=== PATIENT | female | born 1985 | race African-American/Black ===

== ENCOUNTER 2017-01-26 04:30 | Inpatient (IN) | payer OTHER ==
[~2017-01-26] VITALS: Ht 152.7 cm; Wt 102.1 kg
[~2017-01-26 04:30] MED LIST: ACET-704 PO; ATOR10TA60 PO; METH-37 PO; PROP20TA PO; WARF1TAB74 PO
--- NOTE | 2017-01-26 05:11 | RAD ---
CT scan of the head without contrast 01/26/2017 Clinical History: Altered mental status. Technique: Unenhanced, contiguous, 5 mm axial sections were obtained through the head. One or more of the following individualized dose reduction techniques were utilized for this study: 1. Automated exposure control. 2. Adjustment of the mA and/or kV according to patient size. 3. Use of iterative reconstruction technique. Findings: Comparison study is dated 06/02/2016. The ventricles and sulci are within normal limits in size and configuration. No acute parenchymal abnormality is seen. No extra-axial fluid collection is seen. No skull fracture is seen. Impression: No acute intracranial abnormality is seen. This result was called to Dr. Mayes in the emergency department. Electronically signed by: Randall Hernandes MD (01/26/2017 5:08 AM) [facility] [place]
[2017-01-26 05:14] LABS: BASO # 0.1 x10^3/uL (0.0-0.2); BASO % 1 % (0-3); EOS % 2 % (0-3); HEMATOCRIT 43.4 % (36.0-47.0); HEMOGLOBIN 15.1 g/dL (12.0-15.5); LYMPH # 2.5 x10^3/uL (1.0-4.8); LYMPH % 37 % (24-48); MEAN CORPUSCULAR HEMOGLOBIN 31 pg (25-35); MEAN CORPUSCULAR HGB CONC 35 g/dL (31-37); MEAN CORPUSCULAR VOLUME 89 fL (79-100); MONO % 7 % (0-9); NEUT % 53 % (31-73); PLATELET COUNT 204 x10^3/uL (140-400); RED BLOOD COUNT 4.91 x10^6/uL (3.50-5.40); RED CELL DISTRIBUTION WIDTH 13.3 % (11.5-14.5); WHITE BLOOD COUNT 6.6 x10^3/uL (4.0-11.0)
[2017-01-26 05:24] LABS: PROTHROMBIN TIME PATIENT 12.8 SEC (11.7-14.0)
[2017-01-26] MEDS: ASPIRIN 325 MG TABLET PO ONE ×2 (05:30→10:33)
[2017-01-26 05:32] LABS: CALCIUM 9.4 mg/dL (8.5-10.1); GFR 79.3; POTASSIUM 3.1 mmol/L (3.5-5.1)
[2017-01-26 05:37] LABS: ALBUMIN/GLOBULIN RATIO 1.1 (1.0-1.7); TOTAL BILIRUBIN 0.5 mg/dL (0.2-1.0); TOTAL PROTEIN 7.6 g/dL (6.4-8.2)
[2017-01-26 06:02] LABS: BARBITURATES NEG (NEG); BENZODIAZEPINES NEG (NEG); CANNABINOIDS NEG (NEG); COCAINE POS (NEG); METHADONE NEG (NEG); OPIATES NEG (NEG); PHENCYCLIDINE POS (NEG)
[2017-01-26 06:03] LABS: NEG OBC UR NEG; POS OBC UR POS
--- NOTE | 2017-01-26 06:16 | PHYS DOC ---
Past Medical History Past Medical History: Hypertension, Stroke Past Surgical History: , Other Additional Past Surgical Histo: "STENT IN NECK" Alcohol Use: Occasionally Drug Use: Marijuana Adult General Chief Complaint Chief Complaint: ALTERED MENTAL STATUS HPI HPI Patient is a 31 year old female who presents with altered mental status. Initially providing very little history due to clinical condition. Dropped off by friends, not acting normally. She has history of previous CVA. Review of Systems Review of Systems unable to obtain due to clinical condition. Current Medications Current Medications Current Medications Medications (Trade) Dose Ordered Sig/[place] Start Time Stop Time Status Last Admin Dose Admin Aspirin (Jaret Aspirin) 325 mg 1X ONCE 01/26/17 05:30 01/26/17 05:31 DC Allergies Allergies Allergies Coded Allergies Type Severity Reaction Last Updated Verified No Known Drug Allergies 03/25/14 No Physical Exam Physical Exam Constitutional: obese, no acute distress, non-toxic appearance. HENT: Normocephalic, atraumatic, bilateral external ears normal, oropharynx moist, nose normal. Eyes: PERRLA 4 mm bilaterally, EOMI, conjunctiva normal, no discharge. Neck: supple, no stridor. Cardiovascular: RRR, no murmurs, no edema. Lungs & Thorax: LCTAB, no wheezing, no respiratory distress. Abdomen: soft, nontender, nondistended. Skin: Warm, dry, no erythema, no rash. Back: No tenderness. Extremities: No tenderness, no edema. Neurologic: Alert and oriented to person only, slurred speech, slow responses to questions & commands, difficulty following some commands, CN2-12 grossly intact, symmetric strength/sensation to UE & LE though weak bilaterally, intact finger to nose & heel to rowley, no palmar drift Psychologic: confused, flat affect Current Patient Data Vital Signs Vital Signs Date Time Temp Pulse Resp B/P (MAP) Pulse Ox O2 Delivery O2 Flow Rate FiO2 01/26/17 05:30 74 183/91 (121) 98 Room Air 01/26/17 04:43 99.1 16 99.1 Lab Values Laboratory Tests Test 01/26/17 04:38 01/26/17 04:43 01/26/17 05:00 01/26/17 05:33 Glucose (Fingerstick) 132 mg/dL (70-99) H POC Urine HCG, Qualitative Hcg negative (Negative) White Blood Count 6.6 x10^3/uL (4.0-11.0) Red Blood Count 4.91 x10^6/uL (3.50-5.40) Hemoglobin 15.1 g/dL (12.0-15.5) Hematocrit 43.4 % (36.0-47.0) Mean Corpuscular Volume 89 fL (79-100) Mean Corpuscular Hemoglobin 31 pg (25-35) Mean Corpuscular Hemoglobin Concent 35 g/dL (31-37) Red Cell Distribution Width 13.3 % (11.5-14.5) Platelet Count 204 x10^3/uL (140-400) Neutrophils (%) (Auto) 53 % (31-73) Lymphocytes (%) (Auto) 37 % (24-48) Monocytes (%) (Auto) 7 % (0-9) Eosinophils (%) (Auto) 2 % (0-3) Basophils (%) (Auto) 1 % (0-3) Neutrophils # (Auto) 3.5 x10^3uL (1.8-7.7) Lymphocytes # (Auto) 2.5 x10^3/uL (1.0-4.8) Monocytes # (Auto) 0.4 x10^3/uL (0.0-1.1) Eosinophils # (Auto) 0.1 x10^3/uL (0.0-0.7) Basophils # (Auto) 0.1 x10^3/uL (0.0-0.2) Prothrombin Time 12.8 SEC (11.7-14.0) Prothrombin Time INR 1.0 (0.8-1.1) PTT 28 SEC (24-38) Sodium Level 143 mmol/L (136-145) Potassium Level 3.1 mmol/L (3.5-5.1) L Chloride Level 106 mmol/L (98-107) Carbon Dioxide Level 29 mmol/L (21-32) Anion Gap 8 (6-14) Blood Urea Nitrogen 9 mg/dL (7-20) Creatinine 1.0 mg/dL (0.6-1.0) Estimated GFR (Cockcroft-Gault) 79.3 BUN/Creatinine Ratio 9 (6-20) Glucose Level 132 mg/dL (70-99) H Calcium Level 9.4 mg/dL (8.5-10.1) Total Bilirubin 0.5 mg/dL (0.2-1.0) Aspartate Amino Transferase (AST) 17 U/L (15-37) Alanine Aminotransferase (ALT) 26 U/L (14-59) Alkaline Phosphatase 70 U/L (46-116) Troponin I Quantitative < 0.017 ng/mL (0.000-0.055) BB-Bxl-M-Type Natriuretic Peptide 43 pg/mL (0-124) Total Protein 7.6 g/dL (6.4-8.2) Albumin 4.0 g/dL (3.4-5.0) Albumin/Globulin Ratio 1.1 (1.0-1.7) Ethyl Alcohol Level < 10 mg/dL (0-10) Urine Test Negative (NEG) Urine Opiates Screen Neg (NEG) Urine Methadone Screen Neg (NEG) Urine Barbiturates Neg (NEG) Urine Phencyclidine Screen Pos (NEG) Urine Amphetamine/Methamphetamine Neg (NEG) Urine Benzodiazepines Screen Neg (NEG) Urine Cocaine Screen Pos (NEG) Urine Cannabinoids Screen Neg (NEG) Urine Ethyl Alcohol Neg (NEG) Laboratory Tests 01/26/17 05:00 Laboratory Tests 01/26/17 05:00 EKG EKG Interpreted by me: Normal sinus rhythm rate 91, no acute ST or T wave changes, normal intervals, no ectopy. [] Radiology/Procedures Radiology/Procedures PROCEDURE: CT HEAD WO CONTRAST CT scan of the head without contrast 01/26/2017 Clinical History: Altered mental status. Technique: Unenhanced, contiguous, 5 mm axial sections were obtained through the head. One or more of the following individualized dose reduction techniques were utilized for this study: 1. Automated exposure control. 2. Adjustment of the mA and/or kV according to patient size. 3. Use of iterative reconstruction technique. Findings: Comparison study is dated 06/02/2016. The ventricles and sulci are within normal limits in size and configuration. No acute parenchymal abnormality is seen. No extra-axial fluid collection is seen. No skull fracture is seen. Impression: No acute intracranial abnormality is seen. This result was called to Dr. Mayes in the emergency department. Electronically signed by: Randall Hernandes MD (01/26/2017 5:08 AM) [facility] DICTATED and SIGNED BY: RANDALL HERNANDES MD DATE: 01/26/17 0501 CXR: interpreted by me: no cardiomegaly, no infiltrate, no pneumothorax.[] Course & Med Decision Making Course & Med Decision Making Pertinent Labs and Imaging studies reviewed. (See chart for details) The patient presents with altered mental status. Initially treated as code stroke due to her history. CT negative for hemorrhage or other acute finding. Gave aspirin. obtained labs & EKG. She had hypokalemia. She tested positive for PCP & cocaine. She told the RN that she had smoked marijuana & was worried that it was contaminated. She was overall much improved & without focal neurologic deficits, but still slow responses & confusion regarding her situation. She did not feel well enough to go home, unable to describe symptoms of previous stroke or whether this is similar. Given unknown time of symptom onset, last normal, likely tox etiology, & absence of focal symptoms, not a candidate for TPA. Discussed with Dr. Dumont who agrees to admit to inpatient status, neurology consult to Dr. Sánchez. The patient is admitted in stable & improved condition. [] Dragon Disclaimer Dragon Disclaimer This electronic medical record was generated, in whole or in part, using a voice recognition dictation system. Departure Departure Impression: Primary Impression: Altered mental status Additional Impression: Polysubstance abuse Disposition: ADMITTED INPATIENT Admitting Physician: Isai Dumont Condition: STABLE Referrals: LUIS MANUEL GARLAND (PCP) Problem Qualifiers AZRA MAYES MD Jan 26, 2017 06:16
[2017-01-26] MEDS ORDERED: ONDANSETRON PF 4 MG/2 ML VIAL. IV PRN ×2 (06:30→10:30)
[2017-01-26] MEDS ORDERED: ACETAMINOPHEN 325 MG TABLET. PO PRN ×2 (06:30→10:30)
--- NOTE | 2017-01-26 06:38 | ACF ---
Admission Forms Criteria MENTAL STATUS CHANGE Clinical Indications for Inpatient Care (Place 'X' for any and all applicable criteria): Ongoing inpatient care may be needed for 1 or more of the following(1)(2)(3)(5)( 6): [X]I. Suspected serious etiology (eg, medical disorder, FIRE SUPPRESSION CAPTAIN event) of altered mental status [ ]II. Danger to self or others not manageable at lower level of care [ ]III. Grave disability (eg, inability to perform self care necessary at lower level of care) [ ]IV. Agitation or inappropriate behavior interfering with care for primary condition (eg, attempting to discontinue lines or drains prematurely, unable to cooperate with respiratory care) [ ]V. Delirium [A] [D][E] as described by 1 or more of the following(26): [ ]a) Delirium due to alcohol or sedative [F] withdrawal [ ]b) Delirium of uncertain etiology that has not responded to appropriate empiric treatment [ ]c) Delirium that prevents performance of a life-sustaining function (eg, feeding or hydrating oneself) [X]. General contraindications and/or Inappropriate clinical situations for Observational Care in patients with Mental Status Change, when ANY ONE of the following is required: [ ]a) Prediction of prolongation of LOS based on ANY ONE of the following may be considered as a contraindication for observational care 2, 3, 4, 5, 6, 7, 8, 9, 10, 11 [ ]i) Age > 65 yrs. [ ]ii) Patient arriving by ambulance [ ]iii) Patient with high acuity [ ]iv) Patient requiring vital sign monitoring [ ]v) Patient on IV medication [X]b) Systolic blood pressures greater than or equal to 180mmHg 3, 12 [ ]c) Patient with altered mental status including delirium and other alteration of consciousness, (3) [ ]d) Patient whose discharge disposition will be to a group home home or rehabilitation home should not be managed in Emergency Department Observation Unit. CMS rule requires 3 days hospital stay before such placement.3,13 [ ]e) Patient with failure to thrive due to broad array of etiologies 3,16,17 [ ]f) Inability to ambulate 3,14 Extended stay beyond goal length of stay for the primary condition may be needed until ALL of the following are present(3)(5): [ ]a) Underlying medical etiology of mental status change is absent, or has been established and adequately treated [ ]b) Danger to self or others is absent or manageable at lower level of care. [ ]c) Behavior crisis management, including physical or chemical restraints, is not required or available at lower level of car [ ]d) Substance or alcohol withdrawal is absent or manageable at lower level of care. [ ]e) Behavioral symptoms (eg, agitation, somnolence, inappropriate behavior) are absent, or are manageable at lower level of care. The original [facility] content created by [facility] has been revised. The portions of the content which have been revised are identified through the use of italic text or in bold, and [facility] has neither reviewed nor approved the modified material. All other unmodified content is copyright [facility] [employer]. Please see references footnoted in the original [facility] edition 2016 Admission Criteria Met?: Yes MOSES LUCIANO Jan 26, 2017 06:38
--- NOTE | 2017-01-26 06:51 | EKG ---
[facility] [address] [place] [address] Test Date: 2017-01-26 Test Time: 05:08:13 Pat Name: SHANELLE JOHNSON Department: Room: Gender: F Certified Technician Specialist: : [id number] Requested By: AZRA TELLES Order Number: [id number] Reading MD: Measurements Intervals [place] Rate: 91 P: -17 [place]: 132 QRS: 16 QRSD: 88 T: 106 QT: 350 QTc: 432 Interpretive Statements SINUS RHYTHM INCOMPLETE RIGHT BUNDLE BRANCH BLOCK ST & T ABNORMALITY, CONSIDER HIGH LATERAL ISCHEMIA OR LEFT VENTRICULAR STRAIN ABNORMAL ECG RI6.01 No previous ECG available for comparison
[2017-01-26] MEDS ORDERED: POTASSIUM CHLORIDE 20 MEQ/15 ML ORAL LIQUID. PO ONE (07:00)
--- NOTE | 2017-01-26 07:15 | RAD ---
Portable chest, 01/26/2017: History: Altered mental status Comparison is made to a study from 07/19/2012. The heart size and pulmonary vascularity are normal. No pulmonary infiltrates are seen. There is no evidence of pleural fluid. IMPRESSION: No acute cardiopulmonary abnormality is detected.
[2017-01-26 07:59] VITALS: BP 145/95
[2017-01-26 08:22] VITALS: BP 145/95
--- NOTE | 2017-01-26 09:52 | PDOC1 ---
History and Physical Identification/Chief Complaint Chief Complaint ams Problems: History of Present Illness History of Present Illness A 31 Female with hx of CVA, Bought to the hospital for AMS, Pt remembers that she was in bar yesterday, after that she cannot recall full events. She denies any doing of drugs, urine positive for Cocaine and PCP. ct Head negative, Pt is alert, oriented. c/o neck pain where they put stents in the past, 12/31, per pt she had recent CT scan which was negative for any new findings. Denies any headaches, or fever or chills. Past Medical History Past Medical History CVA Cardiovascular: HTN Past Surgical History Past Surgical History STENTS PLACEMENT Social History Smoke: No ALCOHOL: occassional Drugs: Cocaine, Marijuana Current Problem List Problem List Problems Medical Problems: (1) Altered mental status Status: Acute (2) Polysubstance abuse Status: Acute Current Medications Current Medications Current Medications Medications (Trade) Dose Ordered Sig/[place] Start Time Stop Time Status Last Admin Dose Admin Acetaminophen (Tylenol) 650 mg PRN Q4HRS PRN 01/26/17 06:30 01/27/17 06:29 Aspirin (Jaret Aspirin) 325 mg 1X ONCE 01/26/17 05:30 01/26/17 05:31 DC Ondansetron HCl (Zofran) 4 mg PRN Q8HRS PRN 01/26/17 06:30 01/27/17 06:29 Potassium Chloride (KCl Oral Soln) 40 meq 1X ONCE 01/26/17 07:00 01/26/17 07:01 DC Allergies Allergies Allergies Coded Allergies Type Severity Reaction Last Updated Verified No Known Drug Allergies 03/25/14 No ROS Review of System CONSTITUTIONAL: No fever or chills EYES: No recent changes SKIN: No rash or itching CARDIOVASCULAR: No chest pain, syncope, palpitations, or edema RESPIRATORY: No SOB or cough GASTROINTESTINAL: No nausea, vomiting or abdominal pain NEUROLOGICAL: No headaches or weakness ENDOCRINE: No cold or heat intolerance GENITOURINARY: No urgency or frequency of urination MUSCULOSKELETAL: No back pain or joint pain LYMPHATICS: No enlarged lymph nodes PSYCHIATRIC: No anxiety or depression Physical Exam Physical Exam GEN.: No apparent distress. Alert and oriented TIMES 3 HEENT: Head is normocephalic, atraumatic NECK: Supple. LUNGS: Clear to auscultation. HEART: RRR, S1, S2 present. Peripheral pulses intact ABDOMEN: Soft, nontender. Positive bowel sounds. EXTREMITIES: Without any cyanosis. NEUROLOGIC: Normal speech, normal tone, rule 4/5, LUE 4/5 PSYCHIATRIC: Normal affect, normal mood. SKIN: No Visible ulcerations Vitals Vitals Vital Signs Date Time Temp Pulse Resp B/P (MAP) Pulse Ox O2 Delivery O2 Flow Rate FiO2 01/26/17 08:22 98.2 73 15 145/95 (112) 99 Room Air 98.2 Labs Labs Laboratory Tests Test 01/26/17 04:38 01/26/17 04:43 01/26/17 05:00 01/26/17 05:33 Glucose (Fingerstick) 132 mg/dL (70-99) Bedside Urine HCG, Qualitative Hcg negative (Negative) White Blood Count 6.6 x10^3/uL (4.0-11.0) Red Blood Count 4.91 x10^6/uL (3.50-5.40) Hemoglobin 15.1 g/dL (12.0-15.5) Hematocrit 43.4 % (36.0-47.0) Mean Corpuscular Volume 89 fL (79-100) Mean Corpuscular Hemoglobin 31 pg (25-35) Mean Corpuscular Hemoglobin Concent 35 g/dL (31-37) Red Cell Distribution Width 13.3 % (11.5-14.5) Platelet Count 204 x10^3/uL (140-400) Neutrophils (%) (Auto) 53 % (31-73) Lymphocytes (%) (Auto) 37 % (24-48) Monocytes (%) (Auto) 7 % (0-9) Eosinophils (%) (Auto) 2 % (0-3) Basophils (%) (Auto) 1 % (0-3) Neutrophils # (Auto) 3.5 x10^3uL (1.8-7.7) Lymphocytes # (Auto) 2.5 x10^3/uL (1.0-4.8) Monocytes # (Auto) 0.4 x10^3/uL (0.0-1.1) Eosinophils # (Auto) 0.1 x10^3/uL (0.0-0.7) Basophils # (Auto) 0.1 x10^3/uL (0.0-0.2) Prothrombin Time 12.8 SEC (11.7-14.0) Prothromb Time International Ratio 1.0 (0.8-1.1) Activated Partial Thromboplast Time 28 SEC (24-38) Sodium Level 143 mmol/L (136-145) Potassium Level 3.1 mmol/L (3.5-5.1) Chloride Level 106 mmol/L (98-107) Carbon Dioxide Level 29 mmol/L (21-32) Anion Gap 8 (6-14) Blood Urea Nitrogen 9 mg/dL (7-20) Creatinine 1.0 mg/dL (0.6-1.0) Estimated GFR (Cockcroft-Gault) 79.3 BUN/Creatinine Ratio 9 (6-20) Glucose Level 132 mg/dL (70-99) Calcium Level 9.4 mg/dL (8.5-10.1) Total Bilirubin 0.5 mg/dL (0.2-1.0) Aspartate Amino Transf (AST/SGOT) 17 U/L (15-37) Alanine Aminotransferase (ALT/SGPT) 26 U/L (14-59) Alkaline Phosphatase 70 U/L (46-116) Troponin I Quantitative < 0.017 ng/mL (0.000-0.055) XI-Lxl-K-Type Natriuretic Peptide 43 pg/mL (0-124) Total Protein 7.6 g/dL (6.4-8.2) Albumin 4.0 g/dL (3.4-5.0) Albumin/Globulin Ratio 1.1 (1.0-1.7) Ethyl Alcohol Level < 10 mg/dL (0-10) Urine Test Negative (NEG) Urine Opiates Screen Neg (NEG) Urine Methadone Screen Neg (NEG) Urine Barbiturates Neg (NEG) Urine Phencyclidine Screen Pos (NEG) Urine Amphetamine/Methamphetamine Neg (NEG) Urine Benzodiazepines Screen Neg (NEG) Urine Cocaine Screen Pos (NEG) Urine Cannabinoids Screen Neg (NEG) Urine Ethyl Alcohol Neg (NEG) Laboratory Tests Test 01/26/17 04:38 01/26/17 04:43 01/26/17 05:00 01/26/17 05:33 Glucose (Fingerstick) 132 mg/dL (70-99) Bedside Urine HCG, Qualitative Hcg negative (Negative) White Blood Count 6.6 x10^3/uL (4.0-11.0) Red Blood Count 4.91 x10^6/uL (3.50-5.40) Hemoglobin 15.1 g/dL (12.0-15.5) Hematocrit 43.4 % (36.0-47.0) Mean Corpuscular Volume 89 fL (79-100) Mean Corpuscular Hemoglobin 31 pg (25-35) Mean Corpuscular Hemoglobin Concent 35 g/dL (31-37) Red Cell Distribution Width 13.3 % (11.5-14.5) Platelet Count 204 x10^3/uL (140-400) Neutrophils (%) (Auto) 53 % (31-73) Lymphocytes (%) (Auto) 37 % (24-48) Monocytes (%) (Auto) 7 % (0-9) Eosinophils (%) (Auto) 2 % (0-3) Basophils (%) (Auto) 1 % (0-3) Neutrophils # (Auto) 3.5 x10^3uL (1.8-7.7) Lymphocytes # (Auto) 2.5 x10^3/uL (1.0-4.8) Monocytes # (Auto) 0.4 x10^3/uL (0.0-1.1) Eosinophils # (Auto) 0.1 x10^3/uL (0.0-0.7) Basophils # (Auto) 0.1 x10^3/uL (0.0-0.2) Prothrombin Time 12.8 SEC (11.7-14.0) Prothromb Time International Ratio 1.0 (0.8-1.1) Activated Partial Thromboplast Time 28 SEC (24-38) Sodium Level 143 mmol/L (136-145) Potassium Level 3.1 mmol/L (3.5-5.1) Chloride Level 106 mmol/L (98-107) Carbon Dioxide Level 29 mmol/L (21-32) Anion Gap 8 (6-14) Blood Urea Nitrogen 9 mg/dL (7-20) Creatinine 1.0 mg/dL (0.6-1.0) Estimated GFR (Cockcroft-Gault) 79.3 BUN/Creatinine Ratio 9 (6-20) Glucose Level 132 mg/dL (70-99) Calcium Level 9.4 mg/dL (8.5-10.1) Total Bilirubin 0.5 mg/dL (0.2-1.0) Aspartate Amino Transf (AST/SGOT) 17 U/L (15-37) Alanine Aminotransferase (ALT/SGPT) 26 U/L (14-59) Alkaline Phosphatase 70 U/L (46-116) Troponin I Quantitative < 0.017 ng/mL (0.000-0.055) RQ-Jun-Y-Type Natriuretic Peptide 43 pg/mL (0-124) Total Protein 7.6 g/dL (6.4-8.2) Albumin 4.0 g/dL (3.4-5.0) Albumin/Globulin Ratio 1.1 (1.0-1.7) Ethyl Alcohol Level < 10 mg/dL (0-10) Urine Test Negative (NEG) Urine Opiates Screen Neg (NEG) Urine Methadone Screen Neg (NEG) Urine Barbiturates Neg (NEG) Urine Phencyclidine Screen Pos (NEG) Urine Amphetamine/Methamphetamine Neg (NEG) Urine Benzodiazepines Screen Neg (NEG) Urine Cocaine Screen Pos (NEG) Urine Cannabinoids Screen Neg (NEG) Urine Ethyl Alcohol Neg (NEG) VTE Prophylaxis Ordered VTE Prophylaxis Devices: No VTE Pharmacological Prophylaxi: No Assessment/Plan Assessment/Plan Toxic encephalopathy: PCP AND COCAINE POSITIVE IN URINE HX OF CVA, UNKNOWN ETIOLOGY HX OF CEREBRAL ANEURYSMS HTN DEPRESSION PLAN PT NOT ABLE TO PROVIDE GOOD LIST OF HOME MEDICATIONS ONE TIME DOSE OF AMLODIPINE FO RBP, PRN HYDRALAZINE TO CONTROL BP XANAX FOR ANXIETY PAIN CONTROL prn morphine with [place] CTA HEAD/NECK NEUROLOGY CONSULT NOT READY FOR dc PT/OT LABS AND IMAGES REVIEWED, NO ACUTE FINDINGS BETTY PALENCIA MD Jan 26, 2017 09:52
[2017-01-26] MEDS ORDERED: HYDROcodone/APAP 5/325MG 1 TAB TABLET PO PRN (10:30)
[2017-01-26] MEDS ORDERED: ALBUTEROL SULFATE 2.5 MG/3 ML NEBU. NEB PRN (10:30)
[2017-01-26] MEDS ORDERED: hydrALAZINE 20 MG/ML VIAL. IVP PRN (10:30)
[2017-01-26] MEDS ORDERED: amLODIPine BESYLATE 10 MG TABLET PO ONE (11:00)
[2017-01-26] MEDS ORDERED: ALPRAZolam 0.25 MG TABLET PO ONE (11:00)
[2017-01-26 11:17] VITALS: BP 145/90
[2017-01-26] MEDS ORDERED: LORA0.5T PO (13:55)
[2017-01-26] MEDS ORDERED: PROM118S2 (13:55)
[2017-01-26] MEDS ORDERED: AMLO10TA2 PO (13:55)
[2017-01-26] MEDS ORDERED: SERT100T8 PO (13:55)
[2017-01-26] MEDS ORDERED: RAME8TAB19 PO (13:55)
[2017-01-26] MEDS ORDERED: MEDR150D9 IM (13:55)
[2017-01-26] MEDS ORDERED: OXYC5TAB PO (13:55)
[2017-01-26] MEDS ORDERED: ASPI-630 PO (13:55)
[2017-01-26] MEDS ORDERED: TOPI25TA7 PO (13:55)
[2017-01-26] MEDS ORDERED: VORT20TA PO (13:55)
[2017-01-26] MEDS ORDERED: LOSA100T6 PO (13:55)
[2017-01-26] MEDS ORDERED: MIRT15TA3 PO (13:55)
[2017-01-26 14:41] VITALS: BP 134/86
[2017-01-26] MEDS ORDERED: oxyCODONE IR 5 MG TABLET PO PRN (15:00)
[2017-01-26] MEDS ORDERED: LORazepam 0.5 MG TABLET PO PRN (15:00)
--- NOTE | 2017-01-26 15:05 | PDOC2 ---
NEUROLOGY CONSULT Date of Admission Date of Admission DATE: 01/26/17 TIME: 14:58 Reason for Consult Reason for Consult: IMPRESSION: Metabolic encephalopathy. Toxic encephalopathy. Hypertensive urgency, BP 196/126 mmHg. HTN Cocaine positive. PCP positive, RECOMMENDATIONS/PLAN: BP control. Treatment diseases. EEG Drug abstinence. HISTORY OF THE PRESENT ILLNESS: 31-y-old AA female patient has mental status changes and was brought by her friend to the ER of [facility]. No detailed Hx was available. No serzures reported. No focalized sensory or motor symptoms complained. Her UDS showed positive of Cocaine and PCP. PAST MEDICAL HISTORY: Please see above. PAST SURGERY HISTORY: . ALLERGY: Unknown MEDICATIONS: Refer to [facility] HISTORY: Non contributory. SOCIAL HISTORY: Lives at home. Unknown her substance and drug use status. REVIEW OF SYSTEMS: Constitutional: No malnutrition, weight loss, cachexia. Head: No traumatic brain or head injury. Skin: No edema, or rash. Ear: No infection, tinnitus. Eyes: No vision loss or color blindness. Nose: No bleeding or purulent discharges. Hearing: No hearing decrease. Neck: No injury. Breast: No history of cancer, masses,or discharges. Cardiac: HTN. Pulmonary: No pneumonia. GI: No GI ulcer, GI bleeding. Urinary/genital: UTI. Endocrinologic: No cousin face, craniofacial dysmorphism, polydactyly Skeletomuscular: No muscular atrophy, deformity. Neurological: see HP. Psychiatric: drug use/abuse ? Otherwise, not -zlvkm review of systems. PHYSICAL EXAMINATION: General appearance is in acute distress. HEENT: Normocephalic and nontraumatic. Eyes, nose, ears, and throat are unremarkable. Neck is supple. No lymphadenopathy. No bruits are heard over the carotid artery. No crepitus. Cardiovascular: S1, S2, regular rate and rhythm. Pulmonary: Clear to auscultation bilaterally. Abdomen: Bowel sounds are positive. Abdomen is soft, nontender, and nondistended. Extremities: No rash, lesions, or edema. No restriction of range of motion NEUROLOGICAL EXAMINATION: Sleepiness. Not fully oriented to time, but knows place and person. PERRL. EOMI. CN: no focal findings. Muscle tone: within normal. Muscle strength: 5 DTR: 2 Plantar reflex: Flexor response bilaterally Gait: not examined in bed. Sensory exam: no abnormal findings. No acute cerebellar signs elicited. F-T-N test not examed due to not follow commands. Current Medications Current Medications Current Medications Aspirin (Jaret Aspirin) 325 mg 1X ONCE PO ; Start 01/26/17 at 05:30; Stop at 05:31; Status DC Ondansetron HCl (Zofran) 4 mg PRN Q8HRS PRN IV NAUSEA/VOMITING; Start 01/26/17 at 06:30; Stop 01/26/17 at 10:27; Status DC Acetaminophen (Tylenol) 650 mg PRN Q4HRS PRN PO FEVER; Start 01/26/17 at 06:30; Stop 01/26/17 at 10:27; Status DC Potassium Chloride (KCl Oral Soln) 40 meq 1X ONCE PO Last administered on 10:34; Start 01/26/17 at 07:00; Stop 01/26/17 at 07:01; Status DC Acetaminophen (Tylenol) 325 mg PRN Q6HRS PRN PO MILD PAIN / TEMP; Start at 10:30 Acetaminophen/ Hydrocodone Bitart (Lortab 5/325) 1 tab PRN Q6HRS PRN PO MODERATE TO SEVERE PAIN; Start 01/26/17 at 10:30 Hydralazine HCl (Apresoline) 10 mg PRN Q4HRS PRN IVP ELEVATED BP, SEE COMMENTS ; Start 01/26/17 at 10:30 Ondansetron HCl (Zofran) 4 mg PRN Q8HRS PRN IV NAUSEA/VOMITING; Start 01/26/17 at 10:30 Albuterol Sulfate (Ventolin Neb Soln) 2.5 mg PRN Q4HRS PRN NEB SHORTNESS OF BREATH; Start 01/26/17 at 10:30 Amlodipine Besylate (Norvasc) 10 mg 1X ONCE PO Last administered on 01/26/17 10:35; Start 01/26/17 at 11:00; Stop 01/26/17 at 11:01; Status DC Alprazolam (Xanax) 0.25 mg 1X ONCE PO Last administered on 01/26/17 10:35; Start 01/26/17 at 11:00; Stop 01/26/17 at 11:01; Status DC Active Scripts Active Robaxin (Methocarbamol) 500 Mg Tablet 500 Mg PO QID Tylenol With Codeine #3 Tablet (Acetaminophen/Codeine Phosphate) 1 Each Tablet 1 Tab PO PRN Q6HRS PRN Reported Mirtazapine 15 Mg Tablet Unknown Dose PO DAILY Sertraline Hcl 100 Mg Tablet 100 Mg PO DAILY Aspirin 81 Mg Tab.chew 81 Mg PO DAILY Rozerem (Ramelteon) 8 Mg Tablet Unknown Dose PO DAILY Topiramate 25 Mg Tablet 25 Mg PO HS Losartan Potassium 100 Mg Tablet 100 Mg PO DAILY Amlodipine Besylate 10 Mg Tablet 10 Mg PO DAILY Oxycodone Hcl 5 Mg Tablet 5 Mg PO BID PRN Promethazine-Codeine Syrup (Promethazine Hcl/Codeine) 118 Ml Syrup Unknown Dose Trintellix (Vortioxetine) 20 Mg Tablet 20 Mg PO DAILY Medroxyprogesterone Acetate 150 Mg/1 Ml Disp.syrin 150 Mg IM Lorazepam 0.5 Mg Tablet 0.5 Mg PO PRN BID PRN Propranolol Hcl 20 Mg Tablet 1 Tab PO BID Atorvastatin Calcium 10 Mg Tablet Unknown Dose PO HS Coumadin (Warfarin Sodium) 1 Mg Tablet Unknown Dose PO DAILY Allergies Allergies: Coded Allergies: No Known Drug Allergies (Unverified , 03/25/14) Vitals VITALS Vital Signs Date Time Temp Pulse Resp B/P (MAP) Pulse Ox O2 Delivery O2 Flow Rate FiO2 01/26/17 14:41 98.2 86 15 134/86 (102) 100 Room Air 98.2 Labs Labs Laboratory Tests Test 01/26/17 04:38 01/26/17 04:43 01/26/17 05:00 01/26/17 05:33 Glucose (Fingerstick) 132 mg/dL (70-99) Bedside Urine HCG, Qualitative Hcg negative (Negative) White Blood Count 6.6 x10^3/uL (4.0-11.0) Red Blood Count 4.91 x10^6/uL (3.50-5.40) Hemoglobin 15.1 g/dL (12.0-15.5) Hematocrit 43.4 % (36.0-47.0) Mean Corpuscular Volume 89 fL (79-100) Mean Corpuscular Hemoglobin 31 pg (25-35) Mean Corpuscular Hemoglobin Concent 35 g/dL (31-37) Red Cell Distribution Width 13.3 % (11.5-14.5) Platelet Count 204 x10^3/uL (140-400) Neutrophils (%) (Auto) 53 % (31-73) Lymphocytes (%) (Auto) 37 % (24-48) Monocytes (%) (Auto) 7 % (0-9) Eosinophils (%) (Auto) 2 % (0-3) Basophils (%) (Auto) 1 % (0-3) Neutrophils # (Auto) 3.5 x10^3uL (1.8-7.7) Lymphocytes # (Auto) 2.5 x10^3/uL (1.0-4.8) Monocytes # (Auto) 0.4 x10^3/uL (0.0-1.1) Eosinophils # (Auto) 0.1 x10^3/uL (0.0-0.7) Basophils # (Auto) 0.1 x10^3/uL (0.0-0.2) Prothrombin Time 12.8 SEC (11.7-14.0) Prothromb Time International Ratio 1.0 (0.8-1.1) Activated Partial Thromboplast Time 28 SEC (24-38) Sodium Level 143 mmol/L (136-145) Potassium Level 3.1 mmol/L (3.5-5.1) Chloride Level 106 mmol/L (98-107) Carbon Dioxide Level 29 mmol/L (21-32) Anion Gap 8 (6-14) Blood Urea Nitrogen 9 mg/dL (7-20) Creatinine 1.0 mg/dL (0.6-1.0) Estimated GFR (Cockcroft-Gault) 79.3 BUN/Creatinine Ratio 9 (6-20) Glucose Level 132 mg/dL (70-99) Calcium Level 9.4 mg/dL (8.5-10.1) Total Bilirubin 0.5 mg/dL (0.2-1.0) Aspartate Amino Transf (AST/SGOT) 17 U/L (15-37) Alanine Aminotransferase (ALT/SGPT) 26 U/L (14-59) Alkaline Phosphatase 70 U/L (46-116) Troponin I Quantitative < 0.017 ng/mL (0.000-0.055) QY-Sjj-I-Type Natriuretic Peptide 43 pg/mL (0-124) Total Protein 7.6 g/dL (6.4-8.2) Albumin 4.0 g/dL (3.4-5.0) Albumin/Globulin Ratio 1.1 (1.0-1.7) Vitamin B12 Level 615 pg/mL (247-911) Thyroid Stimulating Hormone (TSH) 2.892 uIU/mL (0.358-3.74) Ethyl Alcohol Level < 10 mg/dL (0-10) Urine Test Negative (NEG) Urine Opiates Screen Neg (NEG) Urine Methadone Screen Neg (NEG) Urine Barbiturates Neg (NEG) Urine Phencyclidine Screen Pos (NEG) Urine Amphetamine/Methamphetamine Neg (NEG) Urine Benzodiazepines Screen Neg (NEG) Urine Cocaine Screen Pos (NEG) Urine Cannabinoids Screen Neg (NEG) Urine Ethyl Alcohol Neg (NEG) Laboratory Tests Test 01/26/17 04:38 01/26/17 04:43 01/26/17 05:00 01/26/17 05:33 Glucose (Fingerstick) 132 mg/dL (70-99) Bedside Urine HCG, Qualitative Hcg negative (Negative) White Blood Count 6.6 x10^3/uL (4.0-11.0) Red Blood Count 4.91 x10^6/uL (3.50-5.40) Hemoglobin 15.1 g/dL (12.0-15.5) Hematocrit 43.4 % (36.0-47.0) Mean Corpuscular Volume 89 fL (79-100) Mean Corpuscular Hemoglobin 31 pg (25-35) Mean Corpuscular Hemoglobin Concent 35 g/dL (31-37) Red Cell Distribution Width 13.3 % (11.5-14.5) Platelet Count 204 x10^3/uL (140-400) Neutrophils (%) (Auto) 53 % (31-73) Lymphocytes (%) (Auto) 37 % (24-48) Monocytes (%) (Auto) 7 % (0-9) Eosinophils (%) (Auto) 2 % (0-3) Basophils (%) (Auto) 1 % (0-3) Neutrophils # (Auto) 3.5 x10^3uL (1.8-7.7) Lymphocytes # (Auto) 2.5 x10^3/uL (1.0-4.8) Monocytes # (Auto) 0.4 x10^3/uL (0.0-1.1) Eosinophils # (Auto) 0.1 x10^3/uL (0.0-0.7) Basophils # (Auto) 0.1 x10^3/uL (0.0-0.2) Prothrombin Time 12.8 SEC (11.7-14.0) Prothromb Time International Ratio 1.0 (0.8-1.1) Activated Partial Thromboplast Time 28 SEC (24-38) Sodium Level 143 mmol/L (136-145) Potassium Level 3.1 mmol/L (3.5-5.1) Chloride Level 106 mmol/L (98-107) Carbon Dioxide Level 29 mmol/L (21-32) Anion Gap 8 (6-14) Blood Urea Nitrogen 9 mg/dL (7-20) Creatinine 1.0 mg/dL (0.6-1.0) Estimated GFR (Cockcroft-Gault) 79.3 BUN/Creatinine Ratio 9 (6-20) Glucose Level 132 mg/dL (70-99) Calcium Level 9.4 mg/dL (8.5-10.1) Total Bilirubin 0.5 mg/dL (0.2-1.0) Aspartate Amino Transf (AST/SGOT) 17 U/L (15-37) Alanine Aminotransferase (ALT/SGPT) 26 U/L (14-59) Alkaline Phosphatase 70 U/L (46-116) Troponin I Quantitative < 0.017 ng/mL (0.000-0.055) MY-Wuq-[id number]-Type Natriuretic Peptide 43 pg/mL (0-124) Total Protein 7.6 g/dL (6.4-8.2) Albumin 4.0 g/dL (3.4-5.0) Albumin/Globulin Ratio 1.1 (1.0-1.7) Vitamin B12 Level 615 pg/mL (247-911) Thyroid Stimulating Hormone (TSH) 2.892 uIU/mL (0.358-3.74) Ethyl Alcohol Level < 10 mg/dL (0-10) Urine Test Negative (NEG) Urine Opiates Screen Neg (NEG) Urine Methadone Screen Neg (NEG) Urine Barbiturates Neg (NEG) Urine Phencyclidine Screen Pos (NEG) Urine Amphetamine/Methamphetamine Neg (NEG) Urine Benzodiazepines Screen Neg (NEG) Urine Cocaine Screen Pos (NEG) Urine Cannabinoids Screen Neg (NEG) Urine Ethyl Alcohol Neg (NEG) LANEY TUBBS MD Jan 26, 2017 15:05
[2017-01-26] MEDS: MIRTAZAPINE 15 MG TABLET PO SCH ×2 (16:00→16:53)
[2017-01-26] MEDS: amLODIPine BESYLATE 10 MG TABLET PO SCH (16:00)
[2017-01-26] MEDS: SERTRALINE 50 MG TABLET. PO SCH ×2 (16:00→16:54)
[2017-01-26] MEDS: LOSARTAN POTASSIUM 50 MG TABLET. PO SCH (16:53)
[2017-01-26 19:00] VITALS: BP 134/88
[2017-01-26] MEDS ORDERED: IV NORMAL SALINE 1000ML BAG 1,000 ML IV SCH (19:00)
[2017-01-26] MEDS ORDERED: TOPIRAMATE 25 MG TABLET. PO SCH (21:00)
[2017-01-26 23:12] VITALS: BP 138/91
[2017-01-27 03:38] VITALS: BP 129/65
[2017-01-27 05:43] LABS: BASO % 1 % (0-3); EOS % 3 % (0-3); HEMATOCRIT 40.4 % (36.0-47.0); HEMOGLOBIN 14.2 g/dL (12.0-15.5); LYMPH # 2.2 x10^3/uL (1.0-4.8); LYMPH % 46 % (24-48); MEAN CORPUSCULAR HEMOGLOBIN 31 pg (25-35); MEAN CORPUSCULAR HGB CONC 35 g/dL (31-37); MEAN CORPUSCULAR VOLUME 88 fL (79-100); MONO % 7 % (0-9); NEUT % 44 % (31-73); PLATELET COUNT 191 x10^3/uL (140-400); RED BLOOD COUNT 4.59 x10^6/uL (3.50-5.40); RED CELL DISTRIBUTION WIDTH 13.4 % (11.5-14.5); WHITE BLOOD COUNT 4.7 x10^3/uL (4.0-11.0)
[2017-01-27 05:57] LABS: CALCIUM 8.6 mg/dL (8.5-10.1); CREATININE 0.8 mg/dL (0.6-1.0); GFR 102.6; POTASSIUM 3.8 mmol/L (3.5-5.1)
[2017-01-27 07:00] VITALS: BP 124/89
[2017-01-27] MEDS ORDERED: ASPIRIN CHEWABLE 81 MG TABLET. PO SCH (08:00)
[2017-01-27] MEDS: SERTRALINE 50 MG TABLET. PO SCH (09:00)
[2017-01-27] MEDS ORDERED: IOHEXOL 300 MG/ML 75 ML VIAL IV ONE (09:45)
[2017-01-27] MEDS ORDERED: CONTRAST GIVEN MC PRN (10:00)
[2017-01-27 11:00] VITALS: BP 134/92
[2017-01-27] MEDS: amLODIPine BESYLATE 10 MG TABLET PO SCH (12:10)
[2017-01-27] MEDS: MIRTAZAPINE 15 MG TABLET PO SCH (12:10)
--- NOTE | 2017-01-27 12:12 | PDOC ---
PROGRESS NOTES Assessment Assessment Metabolic encephalopathy. Toxic encephalopathy. Hypertensive urgency, BP 196/126 mmHg. HTN Headache. Cocaine positive. PCP positive, RECOMMENDATIONS/PLAN: BP control. Treat medical diseases. CTA pending. Drug abstinence. FU with PCP. See Psychiatry. EEG on 01/26/17: No epileptic activity. HISTORY OF THE PRESENT ILLNESS: 31-y-old AA female patient has mental status changes and was brought by her friend to the ER of [facility]. No detailed Hx was available. No serzures reported. No focalized sensory or motor symptoms complained. Her UDS showed positive of Cocaine and PCP. No seizures. PAST MEDICAL HISTORY: Please see above. PAST SURGERY HISTORY: . ALLERGY: Unknown MEDICATIONS: Refer to [facility] HISTORY: Non contributory. SOCIAL HISTORY: Lives at home. Unknown her substance and drug use status. REVIEW OF SYSTEMS: Constitutional: No malnutrition, weight loss, cachexia. Head: No traumatic brain or head injury. Skin: No edema, or rash. Ear: No infection, tinnitus. Eyes: No vision loss or color blindness. Nose: No bleeding or purulent discharges. Hearing: No hearing decrease. Neck: No injury. Breast: No history of cancer, masses,or discharges. Cardiac: HTN. Pulmonary: No pneumonia. GI: No GI ulcer, GI bleeding. Urinary/genital: UTI. Endocrinologic: No cousin face, craniofacial dysmorphism, polydactyly Skeletomuscular: No muscular atrophy, deformity. Neurological: see HP. Psychiatric: drug use/abuse ? Otherwise, not [id number] review of systems. PHYSICAL EXAMINATION: General appearance is in acute distress. HEENT: Normocephalic and nontraumatic. Eyes, nose, ears, and throat are unremarkable. Neck is supple. No lymphadenopathy. No bruits are heard over the carotid artery. No crepitus. Cardiovascular: S1, S2, regular rate and rhythm. Pulmonary: Clear to auscultation bilaterally. Abdomen: Bowel sounds are positive. Abdomen is soft, nontender, and nondistended. Extremities: No rash, lesions, or edema. No restriction of range of motion NEUROLOGICAL EXAMINATION: Awake. Oriented to time, place and person. PERRL. EOMI. CN: no focal findings. Muscle tone: within normal. Muscle strength: 5 DTR: 2 Plantar reflex: Flexor response bilaterally Gait: not examined in bed. Sensory exam: no abnormal findings. No acute cerebellar signs elicited. nds. Objective Objective Vital Signs Date Time Temp Pulse Resp B/P (MAP) Pulse Ox O2 Delivery O2 Flow Rate FiO2 01/27/17 11:00 98.5 73 18 134/92 (106) 97 Room Air 98.5 Intake and Output 01/27/17 07:00 Intake Total 990 ml Balance 990 ml Intake Oral 990 ml # Voids 6 Vitals Signs Vitals VS - Last 72 Hours, by Label Date Time Temp Pulse Resp B/P (MAP) Pulse Ox O2 Delivery O2 Flow Rate FiO2 01/27/17 11:00 98.5 73 18 134/92 (106) 97 Room Air 98.5 01/27/17 08:00 Room Air 01/27/17 07:00 98.5 65 18 124/89 (101) 100 Room Air 98.5 01/27/17 03:38 98.2 72 18 129/65 (86) 100 Room Air 98.2 01/26/17 23:12 98.0 85 18 138/91 (107) 96 Room Air 98.0 01/26/17 20:00 Room Air 01/26/17 19:00 98.1 68 18 134/88 (103) 99 Room Air 98.1 01/26/17 16:53 86 134/86 01/26/17 14:41 98.2 86 15 134/86 (102) 100 Room Air 98.2 01/26/17 12:58 Room Air 01/26/17 11:17 98.9 67 15 145/90 (108) 100 Room Air 98.9 01/26/17 10:35 73 145/95 01/26/17 08:22 98.2 73 15 145/95 (112) 99 Room Air 98.2 01/26/17 07:59 98.2 73 15 145/95 (112) 99 Room Air 98.2 Laboratory Laboratory Laboratory Tests Test 01/27/17 04:55 White Blood Count 4.7 x10^3/uL (4.0-11.0) Red Blood Count 4.59 x10^6/uL (3.50-5.40) Hemoglobin 14.2 g/dL (12.0-15.5) Hematocrit 40.4 % (36.0-47.0) Mean Corpuscular Volume 88 fL (79-100) Mean Corpuscular Hemoglobin 31 pg (25-35) Mean Corpuscular Hemoglobin Concent 35 g/dL (31-37) Red Cell Distribution Width 13.4 % (11.5-14.5) Platelet Count 191 x10^3/uL (140-400) Neutrophils (%) (Auto) 44 % (31-73) Lymphocytes (%) (Auto) 46 % (24-48) Monocytes (%) (Auto) 7 % (0-9) Eosinophils (%) (Auto) 3 % (0-3) Basophils (%) (Auto) 1 % (0-3) Neutrophils # (Auto) 2.1 x10^3uL (1.8-7.7) Lymphocytes # (Auto) 2.2 x10^3/uL (1.0-4.8) Monocytes # (Auto) 0.3 x10^3/uL (0.0-1.1) Eosinophils # (Auto) 0.1 x10^3/uL (0.0-0.7) Basophils # (Auto) 0.0 x10^3/uL (0.0-0.2) Sodium Level 142 mmol/L (136-145) Potassium Level 3.8 mmol/L (3.5-5.1) Chloride Level 107 mmol/L (98-107) Carbon Dioxide Level 25 mmol/L (21-32) Anion Gap 10 (6-14) Blood Urea Nitrogen 9 mg/dL (7-20) Creatinine 0.8 mg/dL (0.6-1.0) Estimated GFR (Cockcroft-Gault) 102.6 Glucose Level 91 mg/dL (70-99) Calcium Level 8.6 mg/dL (8.5-10.1) Medication Medications Current Medications Amlodipine Besylate (Norvasc) 10 mg DAILY PO ; Start 01/26/17 at 16:00 Aspirin (Children'S Aspirin) 81 mg DAILYWBKFT PO ; Start 01/27/17 at 08:00 Info (Do NOT chart on this entry -- for MONITORING) 1 each PRN DAILY PRN MC SEE COMMENTS; Start 01/27/17 at 10:00; Stop 01/29/17 at 09:59 Iohexol (Omnipaque 300 Mg/ml) 75 ml 1X ONCE IV Last administered on 01/27/17t 10:55; Start 01/27/17 at 09:45; Stop 01/27/17 at 09:46; Status DC Lorazepam (Ativan) 0.5 mg PRN BID PRN PO ANXIETY / AGITATION Last administered on 01/26/17 20:51; Start 01/26/17 at 15:00 Losartan Potassium (Cozaar) 100 mg DAILY PO Last administered on 01/26/17 16:53 ; Start 01/26/17 at 16:00 Mirtazapine (Remeron) 15 mg DAILY PO ; Start 01/26/17 at 16:00 Oxycodone HCl (Roxicodone) 5 mg BID PRN PO PAIN; Start 01/26/17 at 15:00 Sertraline HCl (Zoloft) 100 mg DAILY PO ; Start 01/26/17 at 16:00 Sodium Chloride 1,000 ml @ 75 mls/hr [id number] IV Last administered on 01/26/17 20:43; Start 01/26/17 at 19:00 Topiramate (Topamax) 25 mg HS PO ; Start 01/26/17 at 21:00 Comment Review of Relevant I have reviewed the following items chris (where applicable) has been applied. LANEY TUBBS MD Jan 27, 2017 12:12
[2017-01-27] MEDS ORDERED: ATOR10TA60 PO (12:13)
[2017-01-27] MEDS ORDERED: LOSA100T6 PO (12:13)
[2017-01-27] MEDS ORDERED: AMLO10TA2 PO (12:13)
[2017-01-27] MEDS: LOSARTAN POTASSIUM 50 MG TABLET. PO SCH (12:13)
--- NOTE | 2017-01-27 12:18 | PDOC3 ---
Discharge Summary* Date of Discharge: Jan 27, 2017 Admitting Diagnosis Problems Medical Problems: (1) Altered mental status Status: Acute (2) Polysubstance abuse Status: Acute Problems: Final Diagnosis Final diagnosis: Altered mental status due to toxic encephalopathy Accelerated hypertension Brief Hospital Course A 31-year-old -[place] female patient with prior history of questionable CVA presented to the hospital with complaints of altered mental statush Her initial lab work showed patient is positive for cocaine and PCP. Her mental status improved with symptomatic treatment such as IV hydration,also her blood pressures were not controlled but once we resumed her home medications patient's blood pressures were controlled. She is not able to provide good history and also not able to provide her home medications however patient says she is not taking any blood thinners at this time I resumed her medications such as amlodipine and atorvastatin 80 she has been recommended to follow up with primary care doctor very closely to continue her care. During hospitalization patient was evaluated by neurology and she had an EEG which showed no acute findings. New scripts provided for blood pressure and hyperlipidemia. She had a CTA of the head and neck which showed no acute findings. PHYSICAL EXAM GENERAL: No apparent distress. Alert and oriented. HEENT: Head normocephalic, atraumatic. NECK: Supple LUNGS: Clear to auscultation. HEART: RRR, S1, S2 present, pulses intact ABDOMEN: Soft, positive bowel sounds. EXTREMITIES: No cyanosis or edema. NEUROLOGIC: Normal Speech, Disposition/Orders: D/C to Home CONDITION AT DISCHARGE: Stable Diet: Cardiac Scheduled Amlodipine Besylate (Amlodipine Besylate), 10 MG PO DAILY Aspirin (Aspirin), 81 MG PO DAILY, (Reported) Atorvastatin Calcium (Atorvastatin Calcium), 10 MG PO HS Losartan Potassium (Losartan Potassium), 100 MG PO DAILY Methocarbamol (Robaxin), 500 MG PO QID Mirtazapine (Mirtazapine), Unknown Dose PO DAILY, (Reported) Propranolol Hcl (Propranolol Hcl), 1 TAB PO BID, (Reported) Ramelteon (Rozerem), Unknown Dose PO DAILY, (Reported) Sertraline Hcl (Sertraline Hcl), 100 MG PO DAILY, (Reported) Topiramate (Topiramate), 25 MG PO HS, (Reported) Vortioxetine Hydrobromide (Trintellix), 20 MG PO DAILY, (Reported) Warfarin Sodium (Coumadin), Unknown Dose PO DAILY, (Reported) Scheduled PRN Acetaminophen With Codeine (Tylenol With Codeine #3 Tablet), 1 TAB PO PRN Q6HRS PRN for PAIN Lorazepam (Lorazepam), 0.5 MG PO PRN BID PRN for ANXIETY / AGITATION, (Reported) Oxycodone Hcl (Oxycodone Hcl), 5 MG PO BID PRN for PAIN, (Reported) Miscellaneous Medications Medroxyprogesterone Acetate (Medroxyprogesterone Acetate), 150 MG IM, (Reported) Promethazine Hcl/Codeine (Promethazine-Codeine Syrup), Unknown Dose, (Reported) Time Spent Total time spent with patient 35 minutes for coordination of care, counseling, and education. BETTY PALENCIA MD Jan 27, 2017 12:18
--- NOTE | 2017-01-27 12:24 | RAD ---
CTA of the head and neck with contrast, 01/27/2017: History: Altered mental status Multidetector CT imaging was performed following an IV bolus injection of iodinated contrast material. Multiplanar reconstructions were produced including coronal and sagittal MIP images, as well as 3-D volume rendered reconstructions of the major arteries. There is no significant narrowing of the left common carotid artery at its origin from the arch. No significant stenosis is identified at the left carotid bifurcation. The left internal carotid artery in the neck is tortuous. No significant stenosis is seen in the distal left internal carotid artery. The left anterior cerebral and middle cerebral arteries and their branches are unremarkable. No aneurysm is identified. The right common carotid artery in the neck is widely patent. There is no significant atherosclerotic plaquing at the right carotid bifurcation. The right internal carotid artery in the neck is tortuous. No significant stenosis is identified in the distal right internal carotid artery. The right anterior and middle cerebral arteries and their major branches are unremarkable. No aneurysm is evident. The proximal vertebral arteries were partially obscured by artifacts arising from the patient's shoulders. Both vertebral arteries in the neck are widely patent up through their junction with the basilar artery. The left vertebral artery is dominant. The basilar artery is unremarkable. The posterior cerebral arteries and their major branches show no abnormality. IMPRESSION: No significant abnormality is detected.
[2017-01-27 15:00] VITALS: BP 127/82
== END 2017-01-27 15:55 | disposition home or self-care (01) | DRG 304 ==
LOC: ER 04:30 → EEVIPCON 06:08 → 6 SOUTH 06:08
PROVIDERS: ADMIT Internal Medicine; ATTEND Internal Medicine
DX: I16.0 Hypertensive urgency (principal); G92 Toxic encephalopathy; Z68.41 Body mass index [BMI] 40.0-44.9, adult; F14.90 Cocaine use, unspecified, uncomplicated; E78.5 Hyperlipidemia, unspecified; F32.9 Major depressive disorder, single episode, unspecified; F12.90 Cannabis use, unspecified, uncomplicated; I10 Essential (primary) hypertension; F41.9 Anxiety disorder, unspecified; E66.9 Obesity, unspecified; Z86.73 Personal history of transient ischemic attack (TIA), and cerebral infarction without residual deficits; Z72.89 Other problems related to lifestyle; Z79.899 Other long term (current) drug therapy; Z82.49 Family history of ischemic heart disease and other diseases of the circulatory system
CPT/HCPCS: 36415; 70450; 70496; 70498; 71010; 80048; 80053; 81025; 82607; 82962; 83880; 84443; 84484; 85027; 85610; 85730; 93005; 94250; 95816; A6539; G0480; G0481; J7030; Q9967; 99285-25

== ENCOUNTER 2019-04-02 04:48 | Emergency (ER) | payer OTHER ==
[~2019-04-02] VITALS: Ht 154.9 cm; Wt 99.8 kg
[~2019-04-02 04:48] MED LIST changes: +AMLO10TA8 PO; +ASPI-630 PO; +LORA0.5T PO; +LOSA100T14 PO; +MEDR150D9 IM; +MIRT15TA3 PO; +OXYC5TAB4 PO; +PROM118S5; +RAME8TAB19 PO; +SERT100T8 PO; +TOPI25TA7 PO; +VORT20TA PO
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
[2019-04-02 08:13] VITALS: BP 148/93
== END 2019-04-02 09:23 | disposition home or self-care (01) ==
LOC: ER 04:48
DX: F10.129 Alcohol abuse with intoxication, unspecified (principal); I10 Essential (primary) hypertension; Z86.73 Personal history of transient ischemic attack (TIA), and cerebral infarction without residual deficits; Z98.890 Other specified postprocedural states; Y90.9 Presence of alcohol in blood, level not specified
CPT/HCPCS: 99283

== ENCOUNTER 2020-11-16 17:59 | Emergency (ER) | payer OTHER ==
[~2020-11-16 17:59] MED LIST changes: +AMLO-187 PO; -AMLO10TA8 PO; +SERT-268 PO; -SERT100T8 PO; +WARF1TAB2 PO; -WARF1TAB74 PO
== END 2020-11-16 18:40 | disposition left against medical advice (07) ==
LOC: ER 17:59
DX: M54.2 Cervicalgia (principal); Z53.21 Procedure and treatment not carried out due to patient leaving prior to being seen by health care provider